=== PATIENT | male | born 1995 ===

== ENCOUNTER 2025-01-14 16:48 | Emergency (ER) | payer BC, SELFPAY ==
--- NOTE | 2025-01-14 16:50 | ED_ITS ---
HPI - Skin/Abscess/Foreign Bdy General Chief complaint: Skin/Abscess/Foreign Body Stated complaint: Rash Time Seen by Provider: 01/14/25 16:50 Source: patient Mode of arrival: ambulatory Limitations: no limitations History of Present Illness HPI narrative: Joe is a 29-year-old male patient presenting to the clinic today with complaints of a raised, itchy, blister rash on his arms, face, chest, and legs. He reports he had gotten into some poison leonie. He contacted his primary care doctor and they sent in a prescription for some triamcinolone cream and he has been applying that without relief. Denies any chest pain or shortness of breath. No tongue swelling or drooling. No known fevers, chills, body aches. No visual changes or eye swelling Related Data Allergies Allergy/AdvReac Type Severity Reaction Status Date / Time No Known Allergies Allergy Verified 01/14/25 16:50 Review of Systems Review of Systems: Pertinent positives per HPI. Patient denies any fever, chills, headache, visual changes, dizziness, cough, shortness of breath, chest pain, palpitations, nausea, vomiting, diarrhea, constipation, abdominal pain, or any urinary issues. PMFSH Comments At the time of my signature, I reviewed and agree with the nursing past medical, surgical, social, and family history. There is no relevant family history pertinent to the patient complaint. Exam Narrative: General: Well-developed, well nourished, in no apparent distress Head: Normocephalic, atraumatic Eyes: Pupils equally round and reactive to light bilaterally, EOM intact, sclera and conjunctive clear, no discharge, lids normal Ears: TMs intact and clear, ear canals clear, no drainage, grossly hearing n ormal. Nose: Nares patent, nodischarge, no inflammation, no sinus tenderness. Mouth: Oral pharynx without lesions or masses, good dentition, MMM. Neck: Supple, trachea midline, no enlargement of anterior or posterior cervical nodes, no thyroid masses or goiter palpable. Cardio: Regular rate and rhythm, s1 and s2 normal, no murmur appreciated. Resp: Clear to auscultation bilaterally, no rhonchi, rales, wheezing or rub Integumentary: Apollo, warm, and dry, intact without lesion, red, raised, blistery rash to arms, neck, face, chest, and legs Course Course Emergency Course: Portions of this record may have been created with voice recognition software. Level of Care: Express Care Visit Vital Signs Vital signs: Vital Signs Temperature 37.7 C H 01/14/25 17:01 Pulse Rate 69 01/14/25 17:01 Respiratory Rate 20 01/14/25 17:01 Blood Pressure 130/82 01/14/25 17:01 Pulse Oximetry 100 01/14/25 17:01 Oxygen Delivery Room Air 01/14/25 17:01 Temperature 37.7 C H 01/14/25 17:01 Pulse Rate 69 01/14/25 17:01 Respiratory Rate 20 01/14/25 17:01 Blood Pressure 130/82 01/14/25 17:01 Pulse Oximetry 100 01/14/25 17:01 Oxygen Delivery Room Air 01/14/25 17:01 Vital signs reviewed MDM - Skin/Abscess/Foreign Bdy MDM Narrative Medical decision making narrative: At the time of visit patient is resting comfortably on the exam table. Patient appears to be nontoxic. Medications: Dexamethasone 10 mg IM given in the clinic today Plan: I suspect patient has poison leonie dermatitis. Prescription for prednisone was sent to the pharmacy. Supportive measures were discussed with the patient and they voiced understanding discharge instructions and agrees to treatment plan. Return precautions reviewed Differential Diagnosis Differential diagnosis: Likely abscess of skin or subcutaneous tissue, viral exanthem, dermatophytosis, urticaria, herpes zoster, allergic reaction to drug, cellulitis, eczema, insect bites, impetigo and contact dermatitis Discharge Plan Discharge Clinical Impression: Poison leonie dermatitis Patient Disposition: Home Condition: Stable Instructions: Antibiotic Form, Poison Leonie (ED) Additional Instructions: Dexamethasone 10 mg IM given in the clinic today Apply triamcinolone cream as directed Take prednisone as directed-start tomorrow January 15, 2025 Avoid hot showers May apply calamine lotion to rash Avoid scratching as this can cause a secondary infection May take Benadryl 25-50mg every 6 hours as needed for itching. Follow up with your PCP in 3-5 days if symptoms persist or sooner if they worsen Go to the Emergency Room if symptoms worsen- fever, rash spreading with treatment, shortness of breath, tongue swelling, drooling, or chest pain Patient Language: German Prescriptions: New prednisone 10 mg tablet 10 mg PO DAILY Qty: 30 0RF Rx Instructions: 60mg po daily on day 1, 40mg po daily on days 2-4, 30mg po daily on days 5-6, 20mg po daily on days 7-8, 10mg po daily on days 9-10 Follow-up/Referrals: UNKNOWN,DOCTOR [Non-Staff] - Time of Disposition: 17:16 Quality NIHSS Nursing Documentation ED NIHSS nursing documentation: reviewed/agree
[2025-01-14 17:01] VITALS: BP 130/82; PULSE 69; RESP 20; TEMP 37.7; O2SAT 100
[2025-01-14] MEDS: dexAMETHasone SOD PHOS INJ 10 MG/ML 1 ML VIAL IM (17:40)
== END 2025-01-14 17:57 | disposition home or self-care (01) ==
PROVIDERS: Emergency Provider Nurse Practitioner Family
DX: L23.7 Allergic contact dermatitis due to plants, except food (principal)
CPT/HCPCS: 96372; 99203; G0463; J1100